=== PATIENT | male | born 1965 | race Caucasian/White ===

== ENCOUNTER 2023-02-16 15:26 | Emergency (ER) | payer SELFPAY ==
--- NOTE | 2023-02-16 17:05 | NUR ---
PT NOT TRIAGED. STATES HE IS FEELING MUCH BETTER AND WILL SEE HIS DOCTOR TOMORROW MORNING.
== END 2023-02-16 17:07 | disposition left against medical advice (07) ==
LOC: ER 15:30
DX: Z53.21 Procedure and treatment not carried out due to patient leaving prior to being seen by health care provider (principal)